=== PATIENT | female | born 1945 | race Caucasian/White ===

== ENCOUNTER → 2021-04-04 | Outpatient (CLI) | payer MEDICARE ==
[~2021-04-04] MED LIST: VITAMIN B-121000 MCG PO; VITAMIN D31000 UNI1 PO; ZANTAC 150 MG150 MG PO
== END ==
LOC: MAMO 09-06 11:30
DX: Z12.31 Encounter for screening mammogram for malignant neoplasm of breast (principal)
CPT/HCPCS: 77063; 77067

== ENCOUNTER → 2021-04-07 | Outpatient (CLI) | payer MEDICARE | LOC: KOH-I 15:32 | DX: M50.123 Cervical disc disorder at C6-C7 level with radiculopathy (principal); M43.13 Spondylolisthesis, cervicothoracic region | CPT/HCPCS: 72050 ==

== ENCOUNTER → 2021-04-21 | Outpatient (CLI) | payer MEDICARE | LOC: CT 13:18 | DX: H54.7 Unspecified visual loss (principal); C67.9 Malignant neoplasm of bladder, unspecified; R55 Syncope and collapse; R42 Dizziness and giddiness; H53.9 Unspecified visual disturbance | CPT/HCPCS: 36415; 70470; 82565; Q9967 ==

== ENCOUNTER → 2021-04-27 | Outpatient (CLI) | payer MEDICARE | LOC: MRI 11:00 | DX: H53.9 Unspecified visual disturbance (principal); R90.89 Other abnormal findings on diagnostic imaging of central nervous system; H70.11 Chronic mastoiditis, right ear | CPT/HCPCS: 70553; A9577 ==

== ENCOUNTER → 2022-06-26 | Outpatient (CLI) | payer MEDICARE | LOC: LAB 17:19 | DX: M47.22 Other spondylosis with radiculopathy, cervical region (principal); R07.9 Chest pain, unspecified | CPT/HCPCS: 72050 ==

== ENCOUNTER → 2022-06-27 | Outpatient (CLI) | payer MEDICARE | LOC: LAB 10:56 | DX: R07.9 Chest pain, unspecified (principal); R09.81 Nasal congestion; Z20.822 Contact with and (suspected) exposure to COVID-19 | CPT/HCPCS: 36415; 85379; U0002 ==

== ENCOUNTER → 2022-07-20 | Outpatient (CLI) | payer MEDICARE | LOC: KOH-I 07-14 10:15 | DX: M50.00 Cervical disc disorder with myelopathy, unspecified cervical region (principal); M48.02 Spinal stenosis, cervical region; M50.10 Cervical disc disorder with radiculopathy, unspecified cervical region; M47.22 Other spondylosis with radiculopathy, cervical region | CPT/HCPCS: 72141 ==

== ENCOUNTER → 2022-07-24 | Outpatient (CLI) | payer MEDICARE | LOC: HEART 5 07-04 09:15 | DX: E78.5 Hyperlipidemia, unspecified (principal); R55 Syncope and collapse; R07.9 Chest pain, unspecified | CPT/HCPCS: 78452; A9502 ==